=== PATIENT | male | born 1990 | race Caucasian/White ===

== ENCOUNTER 2022-07-31 16:50 | Emergency (ER) | payer BC ==
[~2022-07-31] VITALS: Ht 170.1 cm; Wt 90.7 kg
[~2022-07-31 16:50] MED LIST: ALBUTEROL0.09 MG/A2 IH; KEFLEX500 MG PO; MOTRIN800 MG PO; PREDNISONE10 MG PO; VIBRAMYCIN100 MG PO
[2022-07-31 17:08] VITALS: BP 104/67
== END 2022-07-31 18:00 | disposition home or self-care (01) ==
LOC: ED 16:50
DX: S61.211A Laceration without foreign body of left index finger without damage to nail, initial encounter (principal); W22.8XXA Striking against or struck by other objects, initial encounter; Y93.89 Activity, other specified; Y92.89 Other specified places as the place of occurrence of the external cause; Y99.8 Other external cause status

== ENCOUNTER 2022-11-03 13:20 | Emergency (ER) | payer OTHER ==
[~2022-11-03] VITALS: Ht 170.1 cm; Wt 81.6 kg
[2022-11-03 13:28] VITALS: BP 138/76
[2022-11-03] MEDS ORDERED: CEPHALEXIN500 M1 PO (14:01)
== END 2022-11-03 15:42 | disposition home or self-care (01) ==
LOC: ED 13:20
DX: S01.01XA Laceration without foreign body of scalp, initial encounter (principal); W22.8XXA Striking against or struck by other objects, initial encounter; Y93.89 Activity, other specified; Y92.218 Other school as the place of occurrence of the external cause; Y99.0 Civilian activity done for income or pay